=== PATIENT | female | born 1955 | race Caucasian/White ===

== ENCOUNTER 2020-12-15 08:44 | Emergency (ER) | payer BC, OTHER ==
[~2020-12-15] VITALS: Ht 170.2 cm; Wt 85.0 kg
[~2020-12-15 08:44] MED LIST: ASPI-630 PO; FENO145T PO; GLIP5TAB10 PO; METF500T16 PO; METO-247 PO; OLME20TA17 PO; SITA50TA PO
[2020-12-15] MEDS ORDERED: LIDOCAINE 1% Multi-Dose 20 ML VIAL. ID ONE (09:00)
--- NOTE | 2020-12-15 09:08 | PHYS DOC ---
Past Medical History Past Medical History: Diabetes-Type I, Hypertension, Stroke Past Surgical History: Cholecystectomy, Hysterectomy, Knee Replacement, Other Additional Past Surgical Histo: carpal tunnel, lumpectomy Smoking Status: Never Smoker Alcohol Use: None Drug Use: None General Adult EDM: Chief Complaint: HAND PROBLEM HPI: HPI: This is a pleasant 65-year-old female presenting the emergency department today with a distal right ring finger near amputation. The patient was working around a trailer hitch when it fell and smashed/avulsed/partial amputation of the distal phalanx of the fourth right hand digit. She denies any other injuries. She has a throbbing moderate to severe pain which is nonradiating without alleviating factors. She has some tingling in the distal portion of the partial amputation. This occurred this morning. She reports when she thought originally it was hanging from her finger which she put back and put pressure on it and came in for evaluation. Review of systems negative for any other injuries, wrist pain shoulder pain or head injury. Negative for any lower extremity injuries. All other review of systems negative. ED course: 65-year-old female presenting with a partial amputation of the right distal ring finger. I spoke with JEREMIAH and placed the patient in a splint. We will transfer for further evaluation treatment and care. Spoke with Dr. Ledesma who accepts patient for transfer. Patient received 1 g of IV Ancef here in the emergency department prior to being transferred by POV. Patient was stable upon transfer. Heart Score: C/O Chest Pain: No Risk Factors: Risk Factors: DM, Current or recent (<one month) smoker, HTN, HLP, family history of CAD, obesity. Risk Scores: Score 0 - 3: 2.5% MACE over next 6 weeks - Discharge Home Score 4 - 6: 20.3% MACE over next 6 weeks - Admit for Clinical Observation Score 7 - 10: 72.7% MACE over next 6 weeks - Early Invasive Strategies Current Medications: Current Medications Medications (Trade) Dose Ordered Sig/Amy Start Time Stop Time Status Last Admin Dose Admin Lidocaine HCl (Lidocaine 1% 20ml Vial) 10 ml 1X ONCE 12/15/20 09:00 12/15/20 09:01 Allergies: Allergies: Allergies Coded Allergies Type Severity Reaction Last Updated Verified rofecoxib Allergy Severe 11/15/13 Yes sulfamethoxazole Allergy Intermediate Hives 11/15/13 Yes trimethoprim Allergy Intermediate Hives 11/15/13 Yes Physical Exam: PE: Constitutional: Well developed, well nourished, no acute distress, non-toxic appearance. [] HENT: Normocephalic, atraumatic, bilateral external ears normal, oropharynx moist, no oral exudates, nose normal. [] Eyes: PERRLA, EOMI, conjunctiva normal, no discharge. [] Neck: Normal range of motion, no tenderness, supple, no stridor. [] Cardiovascular:Heart rate regular rhythm, no murmur [] Lungs & Thorax: Bilateral breath sounds clear to auscultation [] Abdomen: Bowel sounds normal, soft, no tenderness, no masses, no pulsatile masses. [] Skin: Warm, dry, no erythema, no rash. [] Back: No tenderness, no CVA tenderness. [] Extremities: The patient's right upper extremity has a distal fingertip amputation around the fingernail of the fourth phalanx. The laceration/amputation starts on the dorsal proximal aspect of the fingernail goes down the lateral or ulnar aspect of the fingernail wraps around to the volar portion with about 30% circumference still attached. It is mobile. 2 sec cap refill with mild decrease in sensation. Wrist and elbow are nontender with normal range of motion. The remainder the extremities are nontender with normal range of motion and neurovascular intact without any signs of trauma. Neurologic: Alert and oriented X 3, normal motor function, normal sensory function, no focal deficits noted. [] Psychologic: Affect normal, judgement normal, mood normal. [] EKG: EKG: [] Radiology/Procedures: Radiology/Procedures: [] Course & Med Decision Making: Course & Med Decision Making Pertinent Labs and Imaging studies reviewed. (See chart for details) [] Dragon Disclaimer: Dragon Disclaimer: This electronic medical record was generated, in whole or in part, using a voice recognition dictation system. Departure Departure Impression: Primary Impression: Fingertip amputation Additional Impressions: Avulsion of fingertip Traumatic amputation of fingertip Disposition: 02 SHORT TERM HOSPITAL Condition: STABLE Referrals: JORGE LUIS FLORES MD (PCP) KANU LIZAMA MD December 15, 2020 09:08
[2020-12-15] MEDS ORDERED: ceFAZolin SODIUM IV Push 1 GM VIAL. IVP ONE (09:30)
[2020-12-15 10:06] VITALS: BP 144/73
== END 2020-12-15 10:30 | disposition short-term general hospital (02) ==
LOC: ER 08:44
DX: S68.124A Partial traumatic metacarpophalangeal amputation of right ring finger, initial encounter (principal); I10 Essential (primary) hypertension; E10.9 Type 1 diabetes mellitus without complications; Z86.73 Personal history of transient ischemic attack (TIA), and cerebral infarction without residual deficits; Z88.2 Allergy status to sulfonamides; Z88.8 Allergy status to other drugs, medicaments and biological substances; W20.8XXA Other cause of strike by thrown, projected or falling object, initial encounter; Y93.89 Activity, other specified; Y92.89 Other specified places as the place of occurrence of the external cause; Y99.8 Other external cause status
CPT/HCPCS: 96374; 99285; J0690